=== PATIENT | female | born 1950 | race Caucasian/White ===

== ENCOUNTER 2017-11-28 15:52 | Emergency (ER) | payer MEDICARE ==
[~2017-11-28] VITALS: Ht 165.1 cm; Wt 58.2 kg
[2017-11-28 16:43] VITALS: Ht 165.1 cm; Wt 58.2 kg
[2017-11-28] MEDS ORDERED: TENORMIN25 MG PO (16:50)
[2017-11-28] MEDS ORDERED: CYMBALTA60 MG PO (16:51)
[2017-11-28] MEDS ORDERED: WELLBUTRIN SR150 MG PO (16:51)
[2017-11-28] MEDS ORDERED: BUSPIRONE HCL30 MG PO (16:51)
[2017-11-28] MEDS ORDERED: TEMAZEPAM30 MG PO (16:52)
[2017-11-28] MEDS ORDERED: PHENERGAN25 M1 PO (16:52)
[2017-11-28] MEDS ORDERED: SENNA LAXATIVE8.6 MG PO (16:53)
[2017-11-28] MEDS ORDERED: MIRALAX17 GM PO (16:53)
[2017-11-28] MEDS ORDERED: DURAGESIC1 PATCH .7 TRANSDERM (16:54)
[2017-11-28 17:53] LABS: BASOPHILS 0.2 % (0-2); HEMATOCRIT 34.9 % (36.0-48.0); HEMOGLOBIN 11.3 g/dL (12-16); IMMATURE GRANULOCYTES 0.1 % (0-5); LYMPHOCYTES 21.1 % (15-50); MCH 26.7 pg (26.0-34.0); MCHC 32.4 g/dL (31.0-37.0); MCV 82.5 fL (80.0-100.0); MEAN PLATELET VOLUME 10.5 fL (7.4-10.4); MONOCYTES 8.7 % (2-11); NEUTROPHILS 68.9 % (40-80); PLATELET COUNT 173 10x3/uL (130-400); RBC 4.23 10x6/uL (4.00-5.40); RDW 16.4 % (11.5-14.5); WBC 8.6 10x3/uL (4.8-10.8)
[2017-11-28 18:15] LABS: ALBUMIN 3.2 g/dL (3.4-5.0); ANION GAP 11.6 mmol/L (8-16); BILIRUBIN - TOTAL 0.44 mg/dL (0.2-1.3); CALCIUM 9.6 mg/dL (8.5-10.1); CARBON DIOXIDE 30.3 mmol/L (21.0-32.0); POTASSIUM - SERUM 3.9 mmol/L (3.5-5.1); PROTEIN - SERUM 7.6 g/dL (6.4-8.2)
[2017-11-28 19:59] LABS: APTT 33.1 SECONDS (22.8-39.4); PROTIME 12.8 SECONDS (11.6-15.0)
[2017-11-28 20:11] LABS: APPEARANCE HAZY (CLEAR); COLOR YELLOW (YELLOW)
[2017-11-28 20:12] LABS: BILIRUBIN NEGATIVE (NEGATIVE); GLUCOSE NEGATIVE (NEGATIVE); KETONE NEGATIVE (NEGATIVE); NITRITE POSITIVE (NEGATIVE); PROTEIN TRACE mg/dL (NEGATIVE); UROBILINOGEN NORMAL (NORMAL)
[2017-11-28 20:13] LABS: RED CELLS - URINE >50 /hpf (0-5); WHITE CELLS - URINE 25-50 /hpf (0-5)
[2017-11-28 20:14] LABS: BACTERIA MODERATE /hpf (NONE SEEN); EPITHELIAL CELLS 0-5 /hpf (0-5)
[2017-11-28] MEDS ORDERED: MACRODANTIN100 MG PO (22:01)
[2017-11-28] MEDS ORDERED: HYDROCODON-ACE1 EAC7 PO (22:01)
[2017-11-29 03:01] VITALS: BP 161/80
[2017-12-03 14:21] VITALS: Ht 165.1 cm; Wt 58.2 kg
== END 2017-11-28 23:24 | disposition home or self-care (01) ==
LOC: EDBD 15:52 → D.ER 15:52
PROVIDERS: Emergency Medicine; Family Medicine
DX: N39.0 Urinary tract infection, site not specified (principal); R63.0 Anorexia; C18.9 Malignant neoplasm of colon, unspecified; E11.9 Type 2 diabetes mellitus without complications; F17.200 Nicotine dependence, unspecified, uncomplicated

== ENCOUNTER 2017-12-02 01:05 | Inpatient (IN) | payer MEDICARE ==
[2017-12-02] VITALS (7 sets, daily range): BP systolic 133–188; BP diastolic 72–98; BMI 18.3
[~2017-12-02] VITALS: Ht 165.1 cm; Wt 49.9 kg
[~2017-12-02 01:05] MED LIST: BUSPIRONE HCL30 MG PO; CYMBALTA60 MG PO; DURAGESIC1 PATCH .7 TRANSDERM; HYDROCODON-ACE1 EAC7 PO; MACRODANTIN100 MG PO; MIRALAX17 GM PO; PHENERGAN25 M1 PO; SENNA LAXATIVE8.6 MG PO; TEMAZEPAM30 MG PO; TENORMIN25 MG PO; WELLBUTRIN SR150 MG PO
[2017-12-02 02:09] LABS: BASOPHILS 0.3 % (0-2); EOSINOPHILS 1.4 % (0-7); HEMATOCRIT 34.8 % (36.0-48.0); HEMOGLOBIN 11.6 g/dL (12-16); IMMATURE GRANULOCYTES 0.2 % (0-5); LYMPHOCYTES 17.3 % (15-50); MCHC 33.3 g/dL (31.0-37.0); MCV 81.1 fL (80.0-100.0); MEAN PLATELET VOLUME 10.1 fL (7.4-10.4); MONOCYTES 10.7 % (2-11); NEUTROPHILS 70.1 % (40-80); RBC 4.29 10x6/uL (4.00-5.40); RDW 16.2 % (11.5-14.5); WBC 6.5 10x3/uL (4.8-10.8)
[2017-12-02 02:10] LABS: PLATELET COUNT 138 10x3/uL (130-400)
[2017-12-02 02:28] LABS: ALKALINE PHOSPHATASE 99 U/L (46-116); ALT (SGPT) 20 U/L (10-68); BILIRUBIN - TOTAL 1.39 mg/dL (0.2-1.3); CALC OSMOLALITY 275 mosm/kg (275-300); CALCIUM 9.7 mg/dL (8.5-10.1); CARBON DIOXIDE 28.2 mmol/L (21.0-32.0); CHLORIDE - SERUM 96 mmol/L (98-107); CREATINE KINASE 51 UL (21-215); GLUCOSE 107 mg/dL (74-106); MAGNESIUM - SERUM 1.7 mg/dL (1.8-2.4); POTASSIUM - SERUM 3.4 mmol/L (3.5-5.1); PRO BNP 8593 pg/mL (0-125); PROTEIN - SERUM 7.3 g/dL (6.4-8.2); SODIUM 137 mmol/L (136-145); UREA NITROGEN 19 mg/dL (7-18); eGFR NON AFRICAN AMERICAN 58 mL/min (90-120)
[2017-12-02 02:29] LABS: TROPONIN-I < 0.017 ng/mL (0.000-0.060)
[2017-12-02 02:37] LABS: APPEARANCE HAZY (CLEAR); BILIRUBIN NEGATIVE (NEGATIVE); COLOR YELLOW (YELLOW); GLUCOSE NEGATIVE (NEGATIVE); KETONE MODERATE mg/dL (NEGATIVE); NITRITE NEGATIVE (NEGATIVE); PROTEIN 1+ mg/dL (NEGATIVE); UROBILINOGEN NORMAL (NORMAL)
[2017-12-02 02:39] LABS: BACTERIA FEW /hpf (NONE SEEN); EPITHELIAL CELLS RARE /hpf (0-5); HYALINE CAST RARE /lpf (NONE SEEN); MUCUS NONE SEEN /lpf (NONE SEEN); SPERMATOZOA 0-5 /hpf (NONE SEEN); WHITE CELLS - URINE >50 /hpf (0-5); YEAST NONE SEEN /hpf (NONE SEEN)
[2017-12-02] MEDS ORDERED: TENORMIN25 MG PO (04:18)
[2017-12-02] MEDS ORDERED: BUPROPION XL150 MG PO (04:19)
[2017-12-02] MEDS ORDERED: CYMBALTA60 MG PO (04:19)
[2017-12-02] MEDS ORDERED: BUSPAR 15 MG TA15 MG PO (04:25)
[2017-12-02] MEDS ORDERED: PHENERGAN25 M1 PO (04:26)
[2017-12-02] MEDS ORDERED: TEMAZEPAM30 MG PO (04:27)
[2017-12-02] MEDS ORDERED: SENNA LAXATIVE8.6 MG PO (04:28)
[2017-12-02] MEDS ORDERED: MIRALAX17 GM PO (04:28)
[2017-12-02] MEDS ORDERED: DURAGESIC1 PATCH .7 TRANSDERM (04:30)
[2017-12-02] MEDS ORDERED: [UNRECOGNIZED DRUG - OTHER] (04:30)
[2017-12-02] MEDS ORDERED: NORCO 7.5/325 T1 TA1 PO (04:31)
[2017-12-02] MEDS ORDERED: FOLATE0.4 MG PO (04:33)
[2017-12-02] MEDS ORDERED: B12 PO (04:33)
[2017-12-02] MEDS ORDERED: MACRODANTIN100 MG PO (04:34)
[2017-12-02] MEDS ORDERED: MULTIPLE VITAMI1 TA1 PO (04:34)
[2017-12-03 04:05] VITALS: BP 133/56
[2017-12-03 05:53] LABS: BASOPHILS 0.2 % (0-2); EOSINOPHILS 2.4 % (0-7); HEMATOCRIT 36.2 % (36.0-48.0); HEMOGLOBIN 11.6 g/dL (12-16); LYMPHOCYTES 33.5 % (15-50); MCH 26.1 pg (26.0-34.0); MCV 81.5 fL (80.0-100.0); MEAN PLATELET VOLUME 11.1 fL (7.4-10.4); MONOCYTES 9.6 % (2-11); NEUTROPHILS 54.3 % (40-80); PLATELET COUNT 148 10x3/uL (130-400); RBC 4.44 10x6/uL (4.00-5.40); RDW 16.4 % (11.5-14.5); WBC 6.2 10x3/uL (4.8-10.8)
[2017-12-03 06:18] LABS: CALCIUM 9.7 mg/dL (8.5-10.1); CARBON DIOXIDE 31.3 mmol/L (21.0-32.0); CREATININE - SERUM 0.9 mg/dL (0.6-1.3); POTASSIUM - SERUM 3.3 mmol/L (3.5-5.1)
[2017-12-03 08:25] VITALS: BP 173/86
[2017-12-03 13:22] VITALS: BP 170/67
[2017-12-03 14:21] VITALS: Ht 165.1 cm; Wt 49.9 kg
[2017-12-03 16:55] VITALS: BP 192/74
[2017-12-03 20:00] VITALS: BP 178/89
[2017-12-04 00:18] VITALS: BP 166/79
[2017-12-04 06:16] LABS: BASOPHILS 0.1 % (0-2); HEMATOCRIT 35.8 % (36.0-48.0); HEMOGLOBIN 11.4 g/dL (12-16); IMMATURE GRANULOCYTES 0.1 % (0-5); LYMPHOCYTES 34.2 % (15-50); MCHC 31.8 g/dL (31.0-37.0); MCV 81.7 fL (80.0-100.0); MEAN PLATELET VOLUME 10.2 fL (7.4-10.4); MONOCYTES 10.2 % (2-11); NEUTROPHILS 53.4 % (40-80); PLATELET COUNT 126 10x3/uL (130-400); RBC 4.38 10x6/uL (4.00-5.40); RDW 16.5 % (11.5-14.5); WBC 7.4 10x3/uL (4.8-10.8)
[2017-12-04 06:50] LABS: CALC OSMOLALITY 277 mosm/kg (275-300); CALCIUM 9.2 mg/dL (8.5-10.1); CARBON DIOXIDE 26.7 mmol/L (21.0-32.0); CHLORIDE - SERUM 102 mmol/L (98-107); GLUCOSE 74 mg/dL (74-106); POTASSIUM - SERUM 3.4 mmol/L (3.5-5.1); SODIUM 140 mmol/L (136-145); UREA NITROGEN 12 mg/dL (7-18)
[2017-12-04 07:00] LABS: CREATININE - SERUM 0.6 mg/dL (0.6-1.3); eGFR NON AFRICAN AMERICAN > 90 mL/min (90-120)
[2017-12-04 08:28] VITALS: BP 153/84
[2017-12-04 15:57] VITALS: BP 155/82
[2017-12-04 18:22] VITALS: BP 178/84
[2017-12-04 20:00] VITALS: BP 177/70
[2017-12-05 04:01] VITALS: BP 160/85
[2017-12-05 05:54] LABS: BASOPHILS 0.1 % (0-2); EOSINOPHILS 3.6 % (0-7); HEMOGLOBIN 11.9 g/dL (12-16); IMMATURE GRANULOCYTES 0.3 % (0-5); LYMPHOCYTES 31.5 % (15-50); MCH 26.3 pg (26.0-34.0); MCHC 32.2 g/dL (31.0-37.0); MCV 81.7 fL (80.0-100.0); MEAN PLATELET VOLUME 10.6 fL (7.4-10.4); MONOCYTES 10.2 % (2-11); NEUTROPHILS 54.3 % (40-80); PLATELET COUNT 137 10x3/uL (130-400); RBC 4.53 10x6/uL (4.00-5.40); RDW 16.4 % (11.5-14.5); WBC 6.7 10x3/uL (4.8-10.8)
[2017-12-05 06:15] LABS: CALC OSMOLALITY 281 mosm/kg (275-300); CALCIUM 9.6 mg/dL (8.5-10.1); CHLORIDE - SERUM 103 mmol/L (98-107); GLUCOSE 87 mg/dL (74-106); POTASSIUM - SERUM 3.3 mmol/L (3.5-5.1); SODIUM 142 mmol/L (136-145); UREA NITROGEN 12 mg/dL (7-18); eGFR NON AFRICAN AMERICAN 76 mL/min (90-120)
[2017-12-05 06:19] LABS: CREATININE - SERUM 0.8 mg/dL (0.6-1.3)
[2017-12-05 08:24] VITALS: BP 166/76
== END 2017-12-05 13:40 | disposition home health service (06) | DRG 100 ==
LOC: D.ER 01:05 → D.MS 02:36 → D.EDHOLD 02:36 → D.MS 03:23
PROVIDERS: Family Medicine; Internal Medicine Nephrology
DX: G40.409 Other generalized epilepsy and epileptic syndromes, not intractable, without status epilepticus (principal); G93.41 Metabolic encephalopathy; E43 Unspecified severe protein-calorie malnutrition; C49.A0 Gastrointestinal stromal tumor, unspecified site; F17.203 Nicotine dependence unspecified, with withdrawal; N39.0 Urinary tract infection, site not specified; Z68.1 Body mass index [BMI] 19.9 or less, adult; Z66 Do not resuscitate; G25.3 Myoclonus; E11.9 Type 2 diabetes mellitus without complications; I10 Essential (primary) hypertension; I25.10 Atherosclerotic heart disease of native coronary artery without angina pectoris; E87.6 Hypokalemia; R32 Unspecified urinary incontinence; G89.3 Neoplasm related pain (acute) (chronic)